=== PATIENT | male | born 1955 | race Caucasian/White ===

== ENCOUNTER 2018-11-30 14:47 | Emergency (ER) | payer OTHER, MEDICARE ==
[2018-11-30 14:53] VITALS: BP 145/80
[2018-11-30] MEDS ORDERED: TDAP ADULT 0.5 ML INJ (BOOSTRIX) IM ONE (15:03)
--- NOTE | 2018-11-30 15:10 | EDPHY ---
H & P Time Seen by Provider: 11/30/18 14:58 HPI/ROS: CHIEF COMPLAINT: Left Finger laceration HISTORY OF PRESENT ILLNESS: 63-year-old [id number] male with out-of- date tetanus was cutting lunch me when he sustained accidental laceration to his left index finger proximal middle phalanx lateral aspect. No flexor or extensor deficits. PHYSICAL EXAM (Prior to examination, patient consented to physical exam, hands were washed and my usual and customary physical exam procedures followed) 1) GENERAL: Well-developed, well-nourished, alert and oriented. Appears to be in no acute distress. 2) HEAD: Normocephalic 3) HEENT: sclera anicteric 4) LUNGS: Breathing comfortably. 5) SKIN: Left index finger middle and proximal phalanx lateral aspect flap laceration with viable flap tissue, handed on the distal aspect, measuring 2.5 cm. 6) MUSCULOSKELETAL: No FDP FDS dysfunction. No extensor dysfunction. 7) NEUROLOGIC: Full sensation and two-point discrimination intact distally Smoking Status: Never smoked Constitutional: Initial Vital Signs Temperature (C) 36.5 C 11/30/18 14:50 Heart Rate 88 11/30/18 14:50 Respiratory Rate 18 11/30/18 14:50 Blood Pressure 145/80 H 11/30/18 14:50 O2 Sat (%) 96 11/30/18 14:50 O2 Delivery Mode Room Air Allergies/Adverse Reactions: Iodine and Iodide Containing Produc Allergy (Verified 11/30/18 14:54) methylphenidate [From Ritalin] Allergy (Verified 11/30/18 14:54) Home Medications: Medication Instructions Recorded Dexedrine 11/30/18 Loxapine 11/30/18 Oxybutynin 11/30/18 Venlafaxine HCl 11/30/18 MDM/Departure - MDM Procedures: Procedure: Laceration repair. I explained the indications, risks and benefits for both laceration repair and anesthetic administration. Verbal consent was obtained from the patient. The laceration on the left index finger was anesthetized using 0.5% bupivicaine without epinephrine digital nerve block. After anesthetic administered the patient was observed for a period of time and had no apparent adverse effects. The wound was cleaned, prepped, draped in normal sterile fashion and explored to its base. No foreign body seen, no foreign bodies palpated. There were no deep structures involved. No tendon injury was identified. The wound was repaired with 6 simple interrupted 5 O Ethilon sutures . The wound repair was complex. The procedure was performed by myself. Patient has been informed that scarring will occur, although efforts have been made to minimize this. Medications Given: Discontinued Medications Diphtheria/Tetanus/Acell Pertussis (Boostrix) 0.5 ml IM .ONCE ONE Stop: 11/30/18 15:04 Last Admin: 11/30/18 15:06 Dose: 0.5 ml - Depart Disposition: Home, Routine, Self-Care Clinical Impression: Laceration of left index finger Qualifiers: Encounter type: initial encounter Damage to nail status: without damage Foreign body presence: without foreign body Qualified Code(s): S61.211A - Laceration without foreign body of left index finger without damage to nail, initial encounter Condition: Good Instructions: Laceration (ED) Additional Instructions: Return to the ER if you develop redness, swelling, discharge, warmth to the wound, red streaks going up your arm or any other symptoms that concern you. Referrals: Return, to the ER in 10 days for suture removal [Other] - As per Instructions
== END 2018-11-30 15:45 | disposition home or self-care (01) ==
PROC: 0HQGXZZ Repair Left Hand Skin, External Approach (ICD-10-PCS; principal; 2018-11-30)
DX: S61.211A Laceration without foreign body of left index finger without damage to nail, initial encounter (principal); Z23 Encounter for immunization; W26.0XXA Contact with knife, initial encounter; Y93.G1 Activity, food preparation and clean up; Y92.000 Kitchen of unspecified non-institutional (private) residence as the place of occurrence of the external cause
CPT/HCPCS: 12001; 90715; 99283; G0010